=== PATIENT | female | born 1935 | race Caucasian/White ===

== ENCOUNTER → 2016-07-01 | Outpatient (CLI) | payer MEDICARE, BC ==
[~2016-07-01] MED LIST: AZITHROMYCIN250 MG PO; DILTIAZEM 24HR120 MG PO; ELAVIL 50 MG TA50 MG PO; ELIQUIS5 MG PO; IPRAT-ALBUT 0.5-3 ML INH; LEVAQUIN750 MG PO; LISINOPRIL20 MG PO; LOPRESSOR 25 MG25 MG PO; MEDROL4 MG PO; PRAVACHOL80 MG PO; PROTONIX40 MG PO; SERTRALINE HCL25 MG PO; SINGULAIR10 MG PO; TESSALON PERLE100 MG PO; VITAMIN B-121000 MC3 PO; VITAMIN D5000 UNIT PO
== END ==
LOC: MAMO 06-24 09:30 → US 06-24 11:00 → MAMO 13:14
DX: R92.8 Other abnormal and inconclusive findings on diagnostic imaging of breast (principal); Z80.3 Family history of malignant neoplasm of breast
CPT/HCPCS: 76641-RT; G0206

== ENCOUNTER → 2016-07-12 | Outpatient (CLI) | payer MEDICARE, BC | LOC: OPSV 10:27 → CT 13:00 | DX: D50.9 Iron deficiency anemia, unspecified (principal); E86.0 Dehydration; N18.3 Chronic kidney disease, stage 3 (moderate); R91.8 Other nonspecific abnormal finding of lung field; K44.9 Diaphragmatic hernia without obstruction or gangrene; E07.9 Disorder of thyroid, unspecified; Z85.820 Personal history of malignant melanoma of skin | CPT/HCPCS: 70491; 71260; 96360; 96361; J7030; J7050; Q9962 ==

== ENCOUNTER → 2016-07-22 | Outpatient (CLI) | payer MEDICARE, BC | LOC: US 14:00 | DX: E04.1 Nontoxic single thyroid nodule (principal); D50.9 Iron deficiency anemia, unspecified; N18.3 Chronic kidney disease, stage 3 (moderate); E86.0 Dehydration; Z85.820 Personal history of malignant melanoma of skin; E04.2 Nontoxic multinodular goiter | CPT/HCPCS: 76536 ==

== ENCOUNTER → 2016-07-30 | Outpatient (CLI) | payer MEDICARE, BC | LOC: LAB 12:02 | DX: J18.9 Pneumonia, unspecified organism (principal); J43.9 Emphysema, unspecified; K44.9 Diaphragmatic hernia without obstruction or gangrene; J45.40 Moderate persistent asthma, uncomplicated | CPT/HCPCS: 36415; 71020 ==

== ENCOUNTER → 2016-08-02 | Outpatient (CLI) | payer MEDICARE, BC | LOC: HEART 5 13:47 | DX: J18.9 Pneumonia, unspecified organism (principal); R94.2 Abnormal results of pulmonary function studies | CPT/HCPCS: 94060; 94729 ==

== ENCOUNTER → 2016-08-16 | Outpatient (CLI) | payer MEDICARE, BC | LOC: US 08:20 | DX: N18.3 Chronic kidney disease, stage 3 (moderate) (principal); E86.0 Dehydration; E04.2 Nontoxic multinodular goiter | CPT/HCPCS: 10022; 76536 ==

== ENCOUNTER → 2020-08-06 | Outpatient (CLI) | payer MEDICARE, BC ==
[~2020-08-06] MED LIST changes: +ALBUTEROL2.5 MG/3 M INH; +ALBUTEROL2.5 MG/3 M NEB; +ASPIR 8181 MG PO; +ASPIRIN 325MG325 MG PO; +ASPIRIN EC81 MG PO; +BENZONATATE200 MG PO; +BREO ELLIPTA 11 EACH INH; +BREO ELLIPTA 21 EACH INH; +CEFUROXIME250 MG PO; +CEPHALEXIN500 MG PO; +CIPRO500 MG PO; +CLINDAMYCIN HC300 MG PO; +DITROPAN XL 5 MG5 MG PO; +FLAGYL500 MG PO; +FUROSEMIDE40 MG PO; +HYDROCODON-ACE1 EAC2 PO; +KEFLEX CAP 500500 MG PO; +LASIX20 MG PO; +LEVOFLOXACIN250 MG PO; +LOPRESSOR 50 MG50 MG PO; +LORTAB 7.5-3251 EACH PO; +METOPROLOL TART50 MG PO; +MUCUS RELIEF400 MG PO; +NORCO 7.5-3251 EACH PO; +PANTOPRAZOLE SO40 MG PO; +PREDNISONE10 MG PO; +PRESERVISION A1 EAC1 PO; +PRESERVISION A1 EACH PO; +PROVENTIL HFA 61 INH INH; +PROVENTIL HFA6.7 GM INH; +RANEXA500 MG PO; +SYMBICORT 160-1 INHA INH; +TOPROL XL50 MG PO; +VENTOLIN HFA 66.7 GM INH; +VISION VITAMIN1 EACH PO; +VITAMIN D21250 MCG PO; +VITAMIN D31250 MCG PO; +VITAMIN D325 MCG PO; +VOLTAREN100 GM TP; +ZESTRIL20 MG PO; +ZOLOFT100 MG PO; +[UNRECOGNIZED DRUG - OTHER]
== END ==
LOC: ECHO 06-25 11:00 → HEART 5 10:30
DX: I48.91 Unspecified atrial fibrillation (principal); I50.22 Chronic systolic (congestive) heart failure; I51.7 Cardiomegaly; I50.30 Unspecified diastolic (congestive) heart failure; Z95.0 Presence of cardiac pacemaker
CPT/HCPCS: 93306

== ENCOUNTER → 2020-08-15 | Outpatient (CLI) | payer MEDICARE, BC | LOC: MAMO 07-29 13:30 | DX: R92.8 Other abnormal and inconclusive findings on diagnostic imaging of breast (principal) | CPT/HCPCS: 77066; G0279 ==

== ENCOUNTER → 2020-08-20 | Outpatient (CLI) | payer MEDICARE, BC ==
[2020-08-20 15:46] LABS: HEMOGLOBIN 14.6 gm/dl (12.3-15.3); RED BLOOD COUNT 5.17 M/UL (4.00-5.10); WHITE BLOOD COUNT 6.9 K/UL (4.5-11.0)
[2020-08-20 16:02] LABS: BUN/CREATININE RATIO 29 (0-10)
== END ==
LOC: LAB 15:13
PROVIDERS: Internal Medicine Cardiovascular Disease
DX: T82.191A Other mechanical complication of cardiac pulse generator (battery), initial encounter (principal); I49.5 Sick sinus syndrome; I50.22 Chronic systolic (congestive) heart failure; I48.91 Unspecified atrial fibrillation
CPT/HCPCS: 36415; 71046; 80048; 85025

== ENCOUNTER 2020-08-22 07:22 | Outpatient (CLI) | payer MEDICARE, BC ==
[~2020-08-22] VITALS: Ht 167.6 cm; Wt 78.9 kg
[~2020-08-22 07:22] MED LIST changes: -ALBUTEROL2.5 MG/3 M NEB; -ASPIRIN EC81 MG PO; -CEPHALEXIN500 MG PO; -CLINDAMYCIN HC300 MG PO; -PRESERVISION A1 EAC1 PO; -VITAMIN D21250 MCG PO; -VITAMIN D31250 MCG PO; -VITAMIN D325 MCG PO; -ZESTRIL20 MG PO; -ZOLOFT100 MG PO
[2020-08-22] MEDS ORDERED: ELIQUIS5 MG PO (08:08)
[2020-08-22] MEDS ORDERED: ZESTRIL20 MG PO (08:10)
[2020-08-22] MEDS ORDERED: ZOLOFT100 MG PO (08:13)
[2020-08-22] MEDS ORDERED: ASPIRIN EC81 MG PO (08:21)
[2020-08-22] MEDS ORDERED: PRESERVISION A1 EAC1 PO (08:22)
[2020-08-22] MEDS ORDERED: SINGULAIR10 MG PO (08:22)
[2020-08-22] MEDS ORDERED: ALBUTEROL2.5 MG/3 M NEB (08:23)
[2020-08-22] MEDS ORDERED: VITAMIN D21250 MCG PO (08:24)
[2020-08-22] MEDS ORDERED: VITAMIN D325 MCG PO (08:24)
[2020-08-22] MEDS ORDERED: CLINDAMYCIN HC300 MG PO (09:20)
[2020-08-22] MEDS ORDERED: CEPHALEXIN500 MG PO (09:20)
[2020-08-22] MEDS ORDERED: LASIX20 MG PO (15:49)
[2020-08-22] MEDS ORDERED: VITAMIN D31250 MCG PO (17:34)
== END 2020-08-23 12:22 | disposition home or self-care (01) ==
LOC: CATH 07:22 → PROG CARE 13:42 → CATH 08-23 12:22
PROC: 02H43JZ Insertion of Pacemaker Lead into Coronary Vein, Percutaneous Approach (ICD-10-PCS; principal; 2020-08-22)
DX: I48.91 Unspecified atrial fibrillation (principal); I25.10 Atherosclerotic heart disease of native coronary artery without angina pectoris; I11.0 Hypertensive heart disease with heart failure; I50.22 Chronic systolic (congestive) heart failure; K21.9 Gastro-esophageal reflux disease without esophagitis; Z88.2 Allergy status to sulfonamides; Z88.5 Allergy status to narcotic agent; Z79.82 Long term (current) use of aspirin; Z79.899 Other long term (current) drug therapy; Z82.49 Family history of ischemic heart disease and other diseases of the circulatory system
CPT/HCPCS: 33224; 71045; 93005; 94640; 94664; 94760; 99152; 99153; C1769; C1900; C2621; J1200; J1644; J2250; J3010; J3370; J7040; J7050; J7070; Q9965

== ENCOUNTER → 2020-09-10 | Outpatient (CLI) | payer MEDICARE, BC ==
[~2020-09-10] MED LIST changes: +ALBUTEROL2.5 MG/3 M NEB; +ASPIRIN EC81 MG PO; +CEPHALEXIN500 MG PO; +CLINDAMYCIN HC300 MG PO; +PRESERVISION A1 EAC1 PO; +VITAMIN D21250 MCG PO; +VITAMIN D31250 MCG PO; +VITAMIN D325 MCG PO; +ZESTRIL20 MG PO; +ZOLOFT100 MG PO
[2020-09-10 13:31] LABS: BUN/CREATININE RATIO 25 (0-10)
== END ==
LOC: OPSV2 09-09 12:00
PROVIDERS: Urology
DX: Z01.812 Encounter for preprocedural laboratory examination (principal); N39.41 Urge incontinence
CPT/HCPCS: 80048; 93005

== ENCOUNTER → 2020-09-11 | Day surgery (SDC) | payer MEDICARE, BC | END | disposition home or self-care (01) | LOC: OR 11:38 | DX: N39.46 Mixed incontinence (principal); R35.0 Frequency of micturition; I13.0 Hypertensive heart and chronic kidney disease with heart failure and stage 1 through stage 4 chronic kidney disease, or unspecified chronic kidney disease; N18.9 Chronic kidney disease, unspecified; I50.9 Heart failure, unspecified; D63.1 Anemia in chronic kidney disease; I48.91 Unspecified atrial fibrillation; E78.00 Pure hypercholesterolemia, unspecified; M19.90 Unspecified osteoarthritis, unspecified site; I25.2 Old myocardial infarction; K21.9 Gastro-esophageal reflux disease without esophagitis; F41.9 Anxiety disorder, unspecified; F32.9 Major depressive disorder, single episode, unspecified; Z99.3 Dependence on wheelchair; Z87.440 Personal history of urinary (tract) infections; Z86.16 Personal history of COVID-19; Z88.5 Allergy status to narcotic agent; Z88.2 Allergy status to sulfonamides; Z88.8 Allergy status to other drugs, medicaments and biological substances; Z79.01 Long term (current) use of anticoagulants; Z79.82 Long term (current) use of aspirin; Z79.891 Long term (current) use of opiate analgesic; Z79.899 Other long term (current) drug therapy | CPT/HCPCS: 87086; J0585; J1100; J1200; J1956; J2405; J2704; J3010; J7030; J7040; J7120 ==

== ENCOUNTER 2021-02-23 15:32 | Observation (INO) | payer MEDICARE, BC ==
[~2021-02-23] VITALS: Ht 167.6 cm; Wt 77.1 kg
[~2021-02-23 15:32] MED LIST changes: +PROAIR HFA8.5 GM INH; +ZESTRIL10 MG PO; -ZESTRIL20 MG PO
[2021-02-23 16:26] LABS: RED BLOOD COUNT 5.28 M/UL (4.00-5.10); WHITE BLOOD COUNT 7.3 K/UL (4.5-11.0)
[2021-02-23 17:15] LABS: BUN/CREATININE RATIO 28 (0-10)
[2021-02-24 05:53] LABS: HEMOGLOBIN 14.5 gm/dl (12.3-15.3); RED BLOOD COUNT 5.21 M/UL (4.00-5.10); WHITE BLOOD COUNT 6.5 K/UL (4.5-11.0)
[2021-02-24 06:23] LABS: BUN/CREATININE RATIO 30 (0-10)
[2021-02-24] MEDS ORDERED: VITAMIN B-12100 MCG PO (09:31)
[2021-02-24] MEDS ORDERED: PRAVASTATIN SOD80 MG PO (09:31)
[2021-02-24] MEDS ORDERED: ELIQUIS 5 MG TAB5 MG PO (09:57)
[2021-02-24] MEDS ORDERED: ATORVASTATIN CA20 MG PO (09:57)
[2021-02-24] MEDS ORDERED: PROTONIX40 MG PO (10:04)
== END 2021-02-24 14:23 | disposition home or self-care (01) ==
LOC: ER1 15:32 → MED SURG 4 18:19 → CDU 18:19 → MED SURG 4 18:19
PROVIDERS: Nurse Practitioner; Physician Assistant; ADMIT Internal Medicine
DX: G45.9 Transient cerebral ischemic attack, unspecified (principal); I48.0 Paroxysmal atrial fibrillation; I11.0 Hypertensive heart disease with heart failure; I50.22 Chronic systolic (congestive) heart failure; I25.10 Atherosclerotic heart disease of native coronary artery without angina pectoris; I49.5 Sick sinus syndrome; E11.9 Type 2 diabetes mellitus without complications; I42.0 Dilated cardiomyopathy; E78.5 Hyperlipidemia, unspecified; I44.7 Left bundle-branch block, unspecified; J45.909 Unspecified asthma, uncomplicated; Z95.0 Presence of cardiac pacemaker; Z20.822 Contact with and (suspected) exposure to COVID-19; Z79.01 Long term (current) use of anticoagulants; Z79.82 Long term (current) use of aspirin; Z79.899 Other long term (current) drug therapy; Z88.2 Allergy status to sulfonamides; Z88.5 Allergy status to narcotic agent; Z88.8 Allergy status to other drugs, medicaments and biological substances; Z90.710 Acquired absence of both cervix and uterus; Z82.49 Family history of ischemic heart disease and other diseases of the circulatory system
CPT/HCPCS: ECHO; 36415; 70450; 70496; 70498; 71045; 80048; 80053; 80061; 81001; 82550; 82553; 83605; 83874; 84484; 85025; 85610; 85652; 86850; 86900; 86901; 87040; 87086; 93005; 93306; G0378; Q9967; U0002

== ENCOUNTER → 2021-04-23 | Outpatient (CLI) | payer MEDICARE, BC ==
[~2021-04-23] MED LIST changes: +ATORVASTATIN CA20 MG PO; +ELIQUIS 5 MG TAB5 MG PO; +PRAVASTATIN SOD80 MG PO; +VITAMIN B-12100 MCG PO
== END ==
LOC: KOH-I 04-22 13:30 → EXRD 04-22 13:30
DX: N18.30 Chronic kidney disease, stage 3 unspecified (principal); R93.41 Abnormal radiologic findings on diagnostic imaging of renal pelvis, ureter, or bladder; R92.8 Other abnormal and inconclusive findings on diagnostic imaging of breast; Z85.820 Personal history of malignant melanoma of skin
CPT/HCPCS: 76775

== ENCOUNTER → 2021-06-05 | Outpatient (CLI) | payer MEDICARE, BC | LOC: US 05-29 09:00 | DX: R10.13 Epigastric pain (principal) | CPT/HCPCS: 76700 ==

== ENCOUNTER → 2021-06-22 | Outpatient (CLI) | payer MEDICARE, BC | LOC: CT 13:03 | DX: G43.709 Chronic migraine without aura, not intractable, without status migrainosus (principal); H81.399 Other peripheral vertigo, unspecified ear; R47.9 Unspecified speech disturbances; Z86.73 Personal history of transient ischemic attack (TIA), and cerebral infarction without residual deficits | CPT/HCPCS: 70496; 70498; Q9967 ==

== ENCOUNTER → 2021-08-17 | Outpatient (CLI) | payer MEDICARE, BC | LOC: MAMO 12:56 | DX: Z12.31 Encounter for screening mammogram for malignant neoplasm of breast (principal); N18.30 Chronic kidney disease, stage 3 unspecified; R92.8 Other abnormal and inconclusive findings on diagnostic imaging of breast; Z85.820 Personal history of malignant melanoma of skin | CPT/HCPCS: 77063; 77067 ==

== ENCOUNTER → 2021-09-09 | Outpatient (CLI) | payer MEDICARE, BC | LOC: RAD 14:06 | DX: N20.0 Calculus of kidney (principal); M54.50 Low back pain, unspecified; W19.XXXA Unspecified fall, initial encounter; M25.561 Pain in right knee; M25.562 Pain in left knee; M25.551 Pain in right hip; M25.552 Pain in left hip; Z96.643 Presence of artificial hip joint, bilateral; M47.816 Spondylosis without myelopathy or radiculopathy, lumbar region; M43.16 Spondylolisthesis, lumbar region; M48.54XA Collapsed vertebra, not elsewhere classified, thoracic region, initial encounter for fracture; M51.36 Other intervertebral disc degeneration, lumbar region; Z96.653 Presence of artificial knee joint, bilateral | CPT/HCPCS: 72110; 73522; 73564; 74018 ==

== ENCOUNTER → 2021-09-24 | Outpatient (CLI) | payer MEDICARE, BC | LOC: MAMO 09-10 14:30 | DX: R92.8 Other abnormal and inconclusive findings on diagnostic imaging of breast (principal); N18.30 Chronic kidney disease, stage 3 unspecified; Z85.820 Personal history of malignant melanoma of skin | CPT/HCPCS: 77065; G0279 ==

== ENCOUNTER 2021-11-03 13:56 | Emergency (ER) | payer MEDICARE, BC ==
[2021-11-03 14:57] LABS: HEMOGLOBIN 14.8 gm/dl (12.3-15.3); RED BLOOD COUNT 5.25 M/UL (4.00-5.10); WHITE BLOOD COUNT 7.1 K/UL (4.5-11.0)
[2021-11-03 15:29] LABS: BUN/CREATININE RATIO 25 (0-10)
== END 2021-11-03 18:45 | disposition home or self-care (01) ==
LOC: ER1 13:56
PROVIDERS: Emergency Medicine
DX: M50.30 Other cervical disc degeneration, unspecified cervical region (principal); I10 Essential (primary) hypertension; J44.9 Chronic obstructive pulmonary disease, unspecified; E78.5 Hyperlipidemia, unspecified; Z20.822 Contact with and (suspected) exposure to COVID-19; Z86.73 Personal history of transient ischemic attack (TIA), and cerebral infarction without residual deficits
CPT/HCPCS: 70450; 71045; 72125; 80053; 82550; 82553; 84484; 85025; 93005; 99284; U0002